=== PATIENT | female | born 1990 | race American Indian/Alaskan Native ===

== ENCOUNTER 2017-12-09 14:56 | Outpatient (CLI) | payer MEDICAID ==
[2017-12-09 15:17] VITALS: BP 126/77
[2017-12-09] MEDS ORDERED: LACTATED RINGERS 500 ML IV ONE (15:18)
[2017-12-09 16:21] LABS: Bilirubin,Urine NEG (Negative); Blood,Urine NEG (Negative); Color,Urine Yellow (Yellow); Mucus,Urine FEW /HPF; Protein,Urine <15 mg/dL mg/dL (Negative); Urobilinogen,Urine < 2.0 mg/dL (<2.0)
== END 2017-12-09 16:59 | disposition home or self-care (01) ==
LOC: TRG 14:56
PROVIDERS: ATTEND Obstetrics & Gynecology
DX: O47.03 False labor before 37 completed weeks of gestation, third trimester (principal); Z3A.31 31 weeks gestation of pregnancy
CPT/HCPCS: 81001

== ENCOUNTER 2018-12-25 00:43 | Emergency (ER) | payer SELFPAY ==
[2018-12-25 01:03] VITALS: BP 138/83
== END 2018-12-25 03:15 | disposition left against medical advice (07) ==
LOC: ED 00:43
DX: R22.0 Localized swelling, mass and lump, head (principal); Z53.21 Procedure and treatment not carried out due to patient leaving prior to being seen by health care provider

== ENCOUNTER 2018-12-25 11:10 | Emergency (ER) | payer SELFPAY ==
--- NOTE | 2018-12-25 11:53 | Emergency Department Report ---
ED ENT HPI - General Chief complaint: Dental/Oral Stated complaint: SWOLLEN JAW Time Seen by Provider: 12/25/18 11:50 Source: patient Mode of arrival: Ambulatory Limitations: No Limitations - History of Present Illness MD complaint: tooth pain -: Last night Location: tooth # Severity: moderate Severity scale (0 -10): 4 Consistency: intermittent Context- Dental: history of dental caries - Related Data Previous Rx's Medication Instructions Recorded Last Taken Type HYDROcodone/APAP 5-325 [[place] 1 each PO Q4-6H PRN #20 tablet 10/14/13 Unknown Rx 5-325 mg TAB] Penicillin Vk [Veetids TAB] 500 mg PO QID #28 tablet 12/16/13 Unknown Rx traMADol [Ultram] 50 mg PO Q6HR PRN #14 tablet 12/16/13 Unknown Rx Fluconazole [Diflucan] 150 mg PO ONCE #1 tablet 07/06/14 Unknown Rx metroNIDAZOLE [Flagyl TAB] 500 mg PO BID #20 tablet 07/06/14 Unknown Rx Allergies Allergy/AdvReac Type Severity Reaction Status Date / Time No Known Allergies Allergy Verified 10/13/13 20:31 ED Dental HPI - General Chief complaint: Dental/Oral Stated complaint: SWOLLEN JAW Time Seen by Provider: 12/25/18 11:50 Source: patient Mode of arrival: Ambulatory Limitations: No Limitations - Related Data Previous Rx's Medication Instructions Recorded Last Taken Type HYDROcodone/APAP 5-325 [[place] 1 each PO Q4-6H PRN #20 tablet 10/14/13 Unknown Rx 5-325 mg TAB] Penicillin Vk [Veetids TAB] 500 mg PO QID #28 tablet 12/16/13 Unknown Rx traMADol [Ultram] 50 mg PO Q6HR PRN #14 tablet 12/16/13 Unknown Rx Fluconazole [Diflucan] 150 mg PO ONCE #1 tablet 07/06/14 Unknown Rx metroNIDAZOLE [Flagyl TAB] 500 mg PO BID #20 tablet 07/06/14 Unknown Rx Allergies Allergy/AdvReac Type Severity Reaction Status Date / Time No Known Allergies Allergy Verified 10/13/13 20:31 ED Review of Systems ROS: Stated complaint: SWOLLEN JAW Other details as noted in HPI Comment: All other systems reviewed and negative Constitutional: denies: chills, fever Respiratory: denies: cough, shortness of breath Cardiovascular: denies: chest pain, palpitations Gastrointestinal: denies: abdominal pain ED Past Medical Hx - Past Medical History Previous Medical History?: No Hx Hypertension: No Hx Diabetes: No Hx Deep Vein Thrombosis: No Hx Renal Disease: No Hx Sickle Cell Disease: No Hx Seizures: No Hx Asthma: No Hx HIV: No - Surgical History Past Surgical History?: No - Social History Smoking Status: Current Every Day Smoker Substance Use Type: Alcohol - Medications Home Medications: Home Medications Medication Instructions Recorded Confirmed Last Taken Type HYDROcodone/APAP 5-325 [[place] 1 each PO Q4-6H PRN #20 tablet 10/14/13 Unknown Rx 5-325 mg TAB] Penicillin Vk [Veetids TAB] 500 mg PO QID #28 tablet 12/16/13 Unknown Rx traMADol [Ultram] 50 mg PO Q6HR PRN #14 tablet 12/16/13 Unknown Rx Fluconazole [Diflucan] 150 mg PO ONCE #1 tablet 07/06/14 Unknown Rx metroNIDAZOLE [Flagyl TAB] 500 mg PO BID #20 tablet 07/06/14 Unknown Rx ED Physical Exam - General Limitations: No Limitations General appearance: alert, in no apparent distress - Head Head exam: Present: atraumatic, normocephalic, normal inspection - ENT ENT exam: Present: other (dental caries) - Respiratory Respiratory exam: Present: normal lung sounds bilaterally - Cardiovascular Cardiovascular Exam: Present: regular rate, normal rhythm, normal heart sounds - GI/Abdominal GI/Abdominal exam: Present: soft. Absent: distended, tenderness - Neurological Exam Neurological exam: Present: alert, oriented X3, CN II-XII intact Critical care attestation.: If time is entered above; I have spent that time in minutes in the direct care of this critically ill patient, excluding procedure time. ED Disposition Clinical Impression: Dental abscess Disposition: TO HOME OR SELFCARE Is pt being admited?: No Condition: Stable Instructions: Dental Abscess (ED) Referrals: [facility] [Provider Group] - 3-5 Days
== END 2018-12-25 12:08 | disposition home or self-care (01) ==
LOC: ED 11:10
DX: K04.7 Periapical abscess without sinus (principal); F17.200 Nicotine dependence, unspecified, uncomplicated

== ENCOUNTER 2021-02-21 01:22 | Emergency (ER) | payer SELFPAY ==
[2021-02-21 01:27] VITALS: BP 153/122
[2021-02-21] MEDS ORDERED: oxyCODONE /ACETAMINOPHEN 5-325MG TAB PO ONE (04:55)
[2021-02-21] MEDS ORDERED: KETOROLAC 30 MG/1 ML INJ IM ONE (04:55)
[2021-02-21] MEDS ORDERED: ONDANSETRON 4 MG ODT TAB PO ONE (04:55)
--- NOTE | 2021-02-21 05:23 | Emergency Department Report ---
ED General Adult HPI - General Chief complaint: Dental/Oral Stated complaint: TOOTHACHE PUI?: No Source: patient Mode of arrival: Ambulatory Limitations: No Limitations - History of Present Illness Initial comments: Patient is a 30-year-old -Martiniquais female with no past medical history presented to the ED with complaint of acute onset persistent left mandibular premolar molar toothache with swollen gums for the last 1 week, worse in the last 2 days. Patient states that she has previously been taking amoxicillin 500 mg twice a day that were prescribed by the dentist and pain medications ibuprofen with no relief. Patient states that in the last 8 hours she has not been able to sleep because of worsening pain that now radiates to the left ear with a headache. Patient denies dizziness, syncope, chest pain, shortness of breath, fever, chills, sore throat, nausea and vomiting or diarrhea and abdominal pain or change in vision. MD Complaint: left mandibular premolar and molar toothache; swollen gums -: Sudden, week(s) (1) Location: mouth Radiation: non-radiation Severity scale (0 -10): 10 Quality: aching, sharp Consistency: constant Improves with: none Worsens with: none Associated Symptoms: denies other symptoms. denies: confusion, chest pain, cough, diaphoresis, headaches, loss of appetite, malaise, nausea/vomiting, rash, seizure, shortness of breath Treatments Prior to Arrival: NSAID - Related Data Previous Rx's Medication Instructions Recorded Last Taken Type HYDROcodone/APAP 5-325 [[place] 1 each PO Q4-6H PRN #20 tablet 10/14/13 Unknown Rx 5-325 mg TAB] Penicillin Vk [Veetids TAB] 500 mg PO QID #28 tablet 12/16/13 Unknown Rx traMADoL [Ultram] 50 mg PO Q6HR PRN #14 tablet 12/16/13 Unknown Rx Fluconazole (Nf) [Diflucan] 150 mg PO ONCE #1 tablet 07/06/14 Unknown Rx metroNIDAZOLE [Flagyl TAB] 500 mg PO BID #20 tablet 07/06/14 Unknown Rx Amoxicillin [Amoxicillin TAB] 875 mg PO BID #14 tablet 12/25/18 Unknown Rx Naproxen [Naprosyn] 500 mg PO BID #14 tablet 12/25/18 Unknown Rx Acetaminophen/Codeine [Tylenol 1 tab PO Q6H PRN #12 tab 02/21/21 Unknown Rx /Codeine # 3 tab] Clindamycin [Clindamycin CAP] 300 mg PO Q8HR #60 capsule 02/21/21 Unknown Rx Ketorolac [Toradol] 10 mg PO Q8H PRN #20 02/21/21 Unknown Rx Allergies Allergy/AdvReac Type Severity Reaction Status Date / Time No Known Allergies Allergy Verified 10/13/13 20:31 ED Review of Systems ROS: Stated complaint: TOOTHACHE Other details as noted in HPI Constitutional: denies: chills, fever Eyes: denies: eye pain, eye discharge, vision change ENT: ear pain (Left ear pain), dental pain (Left mandibular premolar molar toothache). denies: throat pain Respiratory: denies: cough, shortness of breath, wheezing Cardiovascular: denies: chest pain, palpitations Endocrine: no symptoms reported Gastrointestinal: denies: abdominal pain, nausea, diarrhea Genitourinary: denies: urgency, dysuria, discharge Musculoskeletal: denies: back pain, joint swelling, arthralgia Skin: denies: rash, lesions Neurological: headache. denies: weakness, paresthesias Psychiatric: denies: anxiety, depression Hematological/Lymphatic: denies: easy bleeding, easy bruising ED Past Medical Hx - Past Medical History Previous Medical History?: No Hx Hypertension: No Hx Diabetes: No Hx Deep Vein Thrombosis: No Hx Renal Disease: No Hx Sickle Cell Disease: No Hx Seizures: No Hx Asthma: No Hx HIV: No - Surgical History Past Surgical History?: No - Social History Smoking Status: Current Every Day Smoker Substance Use Type: Alcohol - Medications Home Medications: Home Medications Medication Instructions Recorded Confirmed Last Taken Type HYDROcodone/APAP 5-325 [[place] 1 each PO Q4-6H PRN #20 tablet 10/14/13 Unknown Rx 5-325 mg TAB] Penicillin Vk [Veetids TAB] 500 mg PO QID #28 tablet 12/16/13 Unknown Rx traMADoL [Ultram] 50 mg PO Q6HR PRN #14 tablet 12/16/13 Unknown Rx Fluconazole (Nf) [Diflucan] 150 mg PO ONCE #1 tablet 07/06/14 Unknown Rx metroNIDAZOLE [Flagyl TAB] 500 mg PO BID #20 tablet 07/06/14 Unknown Rx Amoxicillin [Amoxicillin TAB] 875 mg PO BID #14 tablet 12/25/18 Unknown Rx Naproxen [Naprosyn] 500 mg PO BID #14 tablet 12/25/18 Unknown Rx Acetaminophen/Codeine [Tylenol 1 tab PO Q6H PRN #12 tab 02/21/21 Unknown Rx /Codeine # 3 tab] Clindamycin [Clindamycin CAP] 300 mg PO Q8HR #60 capsule 02/21/21 Unknown Rx Ketorolac [Toradol] 10 mg PO Q8H PRN #20 02/21/21 Unknown Rx ED Physical Exam - General Limitations: No Limitations General appearance: alert, in no apparent distress - Head Head exam: Present: atraumatic, normocephalic, normal inspection - Eye Eye exam: Present: normal appearance, PERRL, EOMI Pupils: Present: normal accommodation - ENT ENT exam: Present: mucous membranes moist, TM's normal bilaterally, normal external ear exam, other (Swollen, severely tender left mandibular gingiva; severely tender left mandibular premolar and molar teeth) - Neck Neck exam: Present: normal inspection, full ROM - Respiratory Respiratory exam: Present: normal lung sounds bilaterally. Absent: respiratory distress, wheezes, rales, rhonchi, chest wall tenderness, accessory muscle use, decreased breath sounds, other - Cardiovascular Cardiovascular Exam: Present: regular rate, normal rhythm, normal heart sounds. Absent: systolic murmur, diastolic murmur, rubs, gallop - GI/Abdominal GI/Abdominal exam: Present: soft, normal bowel sounds. Absent: distended, guarding, rebound, hyperactive bowel sounds, hypoactive bowel sounds, organomegaly - Extremities Exam Extremities exam: Present: normal inspection, full ROM, normal capillary refill - Back Exam Back exam: Present: normal inspection, full ROM. Absent: tenderness, CVA tenderness (R), CVA tenderness (L), muscle spasm, paraspinal tenderness, vertebral tenderness - Neurological Exam Neurological exam: Present: alert, oriented X3, CN II-XII intact, normal gait, reflexes normal - Psychiatric Psychiatric exam: Present: normal affect, normal mood - Skin Skin exam: Present: warm, dry, intact, normal color. Absent: rash ED Course Vital Signs 02/21/21 01:26 Temperature 98.0 F Pulse Rate 79 Respiratory 18 Rate Blood Pressure 153/122 O2 Sat by Pulse 98 Oximetry ED Medical Decision Making - Medical Decision Making This is a 30-year-old -Martiniquais female with no past medical history presented to the ED with complaint of acute onset persistent left mandibular premolar molar toothache with swollen gums for the last 1 week, worse in the last 2 days. Patient states that she has previously been taking amoxicillin 500 mg twice a day that were prescribed by the dentist and pain medications ibuprofen with no relief. Patient states that in the last 8 hours she has not been able to sleep because of worsening pain that now radiates to the left ear with a headache. In the ED, patient is alert and oriented x3 and is not in distress. Patient was treated in the ED for pain. On reevaluation, patient's pain is well controlled medication. Patient discharged home on no pain medication and advised to follow-up with her primary care physician or dentist in 5 to 7 days for reevaluation or return to the ED immediately if symptoms get worse. - Differential Diagnosis dental abscess; gingivitis; dental caries Critical care attestation.: If time is entered above; I have spent that time in minutes in the direct care of this critically ill patient, excluding procedure time. ED Disposition Clinical Impression: Dental abscess, Acute gingivitis, Dental caries Disposition: 01 HOME / SELF CARE / HOMELESS Is pt being admited?: No Does the pt Need Aspirin: No Condition: Stable Instructions: Dental Abscess, [id number], Trench Mouth, Dental Extraction, Care After, [id number] Additional Instructions: Take medication with food, drink plenty fluids and follow-up with your primary care physician or dentist in 7 to 10 days for reevaluation. Return to the ED immediately if symptoms get worse. Prescriptions: Clindamycin [Clindamycin CAP] 300 mg PO Q8HR #60 capsule Ketorolac [Toradol] 10 mg PO Q8H PRN #20 PRN Reason: Pain Acetaminophen/Codeine [Tylenol /Codeine # 3 tab] 1 tab PO Q6H PRN #12 tab PRN Reason: Pain , Severe (7-10) Referrals: [facility] [Outside] - 7-10 days Forms: Work/School Release Form(ED) Time of Disposition: 05:28 Print Language: SURINAMESE
[2021-02-21] MEDS ORDERED: CLINDAMYCIN 150 MG CAP PO ONE (05:55)
== END 2021-02-21 06:05 | disposition home or self-care (01) ==
LOC: ED 01:22
DX: K04.7 Periapical abscess without sinus (principal); K05.00 Acute gingivitis, plaque induced; K02.9 Dental caries, unspecified; F17.200 Nicotine dependence, unspecified, uncomplicated
CPT/HCPCS: 96372; 99281; J1885; J3490; Q0162